=== PATIENT | female | born 1955 | race Caucasian/White ===

== ENCOUNTER 2017-08-20 15:04 | Emergency (ER) | payer OTHER ==
[2017-08-20] MEDS ORDERED: ONDANSETRON 4 MG (ODT) TAB ONE (15:39)
[2017-08-20] MEDS ORDERED: MORPHINE 4 MG/ML SYR ONE (15:39)
--- NOTE | 2017-08-20 16:18 | ER ---
Nurse's Notes [facility] Name: Jayleen Corona Age: 62 yrs Sex: Female : 1955 Arrival Date: 08/20/2017 Time: 15:07 Bed 30 Private MD: Jose Escamilla E Diagnosis: Chronic pain syndrome;Acute laryngitis Presentation: 08/20 15:11 Presenting complaint: Patient states: c/o back pain for years and has been increasing sv in pain. Pt needs back surgery but pain has increased. Went to get pt in lobby in her wheelchair and pt was already pulling herself around the registration desk. Transition of care: patient was not received from another setting of care. Care prior to arrival: None. 15:11 Method Of Arrival: Wheelchair sv 15:11 Acuity: JOANA 3 sv 16:14 Onset of symptoms is unknown. Risk Assessment: Do you want to hurt yourself or someone rk2 else? Patient reports no desire to harm self or others. Initial Sepsis Screen: Does the patient meet any 2 criteria? No. Patient's initial sepsis screen is negative. Does the patient have a suspected source of infection? No. Patient's initial sepsis screen is negative. Triage Assessment: 16:10 General: Appears in no apparent distress. uncomfortable, well developed, well rk2 nourished, Behavior is calm, cooperative. Pain: Complains of pain in back and throat. Neuro: Level of Consciousness is alert, obeys commands, Oriented to person, place, time, situation. Respiratory: Airway is patent Respiratory effort is even, unlabored, Respiratory pattern is regular, symmetrical. Derm: Skin is pink, warm \T\ dry. Historical: - Allergies: 15:13 No Known Allergies; sv - Home Meds: 15:13 alprazolam 2 mg Oral tab twice a day [Active]; Ambien 10 mg Oral tab 1 tab once daily sv [Active]; Cymbalta 30 mg Oral cpDR 1 cap once daily [Active]; gabapentin 100 mg Oral cap 3 caps 3 times per day [Active]; Keppra 1,000 mg Oral tab 1 tab every 12 hours [Active]; lisinopril-hydrochlorothiazide 10-12.5 mg Oral tab 1 tab once daily [Active]; - PMHx: 15:13 Chronic pain; COPD; Hypertension; Seizures; sv - PSHx: 15:13 partial hysterectomy; sv - Immunization history:: Adult Immunizations up to date. - Social history:: Smoking status: Patient uses tobacco products, smokes one pack cigarettes per day. - Ebola Screening: : No symptoms or risks identified at this time. Screenin:07 Abuse screen: Denies threats or abuse. Nutritional screening: No deficits noted. rk2 Tuberculosis screening: No symptoms or risk factors identified. Fall Risk Ambulatory Aid- Gait- Impaired (20 pts.). Vital Signs: 15:13 BP 118 / 70; Pulse 78; Resp 18; Temp 98.8; Pulse Ox 96% ; Weight 69.4 kg; Height 5 ft. sv 5 in. (165.10 cm); Pain 10/10; 16:36 BP 126 / 83; Pulse 70; Resp 17; Pulse Ox 96% on R/A; rk2 15:13 Body Mass Index 25.46 (69.40 kg, 165.10 cm) sv ED Course: 15:07 Patient arrived in ED. rg4 15:09 Jose Escamilla MD is Private Physician. rg4 15:12 Triage completed. sv 15:14 Arm band placed on right wrist. sv 15:20 Moira Nguyen FNP-C [facility]. snw 15:20 Erik Mendoza MD is Attending Physician. snw 15:34 Arelis Dyer RN is Primary Nurse. rk2 16:07 Patient has correct armband on for positive identification. Bed in low position. Call rk2 light in reach. Side rails up X2. 16:16 Jose Escamilla MD is Referral Physician. snw 16:41 Throat Culture Sent. rk2 16:50 No provider procedures requiring assistance completed. Patient did not have IV access rk2 during this emergency room visit. Administered Medications: 15:45 Drug: morphine 4 mg Route: IM; Site: right deltoid; rk2 16:39 Follow up: Response: No adverse reaction rk2 15:45 Drug: Zofran 4 mg Route: PO; rk2 16:39 Follow up: Response: No adverse reaction rk2 Outcome: 16:17 Discharge ordered by . snw 16:50 Discharged to home via wheelchair. rk2 16:50 Condition: improved 16:50 Discharge instructions given to patient, Prescriptions given X 2. 16:52 Patient left the ED. rk2 Signatures: Joaquin, Irene, RN RN sv Moira Nguyen, HAND TOUCH UP PAINTER-C HAND TOUCH UP PAINTER-Csnw Sushila Burton rg4 Arelis Dyer RN RN rk2 Corrections: (The following items were deleted from the chart) 15:15 15:13 Pulse 78bpm; Resp 18bpm; Pulse Ox 96%; Temp 98.8F; 69.4 kg; Height 5 ft. 5 in.; sv BMI: 25.4; Pain 12/04; sv 15:22 15:11 Presenting complaint: Patient states: c/o back pain for years and has been sv increasing in pain. Pt needs back surgery but pain has increased. sv
--- NOTE | 2017-08-20 16:18 | EDPHYS ---
Physician Documentation [facility] Name: Jayleen Corona Age: 62 yrs Sex: Female : 1955 Arrival Date: 08/20/2017 Time: 15:07 Bed 30 Private MD: Jose Escamilla E ED Physician Erik Mendoza HPI: 08/20 16:19 This 62 yrs old Female presents to ER via Wheelchair with complaints of snw Trouble Walking, Back Pain. 15:49 The patient presents to the emergency department with difficult walking, pt states she snw has difficulty but does independent sit up to show me location of back pain - from neck to feet. Onset: The symptoms/episode began/occurred gradually, 10 year(s) ago, and became worse and became persistent. Associated signs and symptoms: Pertinent positives: weakness, depression, tearfulness. Severity of symptoms: At their worst the symptoms were severe in the emergency department the symptoms are unchanged. Patient's baseline: Neuro: alert and fully oriented, Motor: no deficits, Ambulation: walks without assistance. Current symptoms: same chronic pain with added frustration that referral to back surgeon has not been obtained. The patient has experienced similar episodes in the past. It is unknown whether or not the patient has recently seen a physician. Historical: - Allergies: 15:13 No Known Allergies; sv - Home Meds: 15:13 alprazolam 2 mg Oral tab twice a day [Active]; Ambien 10 mg Oral tab 1 tab once daily sv [Active]; Cymbalta 30 mg Oral cpDR 1 cap once daily [Active]; gabapentin 100 mg Oral cap 3 caps 3 times per day [Active]; Keppra 1,000 mg Oral tab 1 tab every 12 hours [Active]; lisinopril-hydrochlorothiazide 10-12.5 mg Oral tab 1 tab once daily [Active]; - PMHx: 15:13 Chronic pain; COPD; Hypertension; Seizures; sv - PSHx: 15:13 partial hysterectomy; sv - Immunization history:: Adult Immunizations up to date. - Social history:: Smoking status: Patient uses tobacco products, smokes one pack cigarettes per day. - Ebola Screening: : No symptoms or risks identified at this time. ROS: 15:48 Eyes: Negative for injury, pain, redness, and discharge. snw 15:48 Cardiovascular: Negative for chest pain, palpitations, and edema, Respiratory: Negative for shortness of breath, cough, wheezing, and pleuritic chest pain, Abdomen/GI: Negative for abdominal pain, nausea, vomiting, diarrhea, and constipation, : Negative for injury, bleeding, discharge, and swelling, MS/Extremity: Negative for injury and deformity, Skin: Negative for injury, rash, and discoloration, Neuro: Negative for headache, weakness, numbness, tingling, and seizure. 15:48 Constitutional: Positive for fatigue, malaise. 15:48 ENT: Positive for sore throat. 15:48 Neck: Positive for swollen nodes. 15:48 Back: Positive for pain at rest, pain with movement. Exam: 15:47 Head/Face: Normocephalic, atraumatic. Eyes: Pupils equal round and reactive to light, snw extra-ocular motions intact. Lids and lashes normal. Conjunctiva and sclera are non-icteric and not injected. Cornea within normal limits. Periorbital areas with no swelling, redness, or edema. 15:47 Chest/axilla: Normal chest wall appearance and motion. Nontender with no deformity. No lesions are appreciated. Cardiovascular: Regular rate and rhythm with a normal S1 and S2. No gallops, murmurs, or rubs. Normal PMI, no JVD. No pulse deficits. Respiratory: Lungs have equal breath sounds bilaterally, clear to auscultation and percussion. No rales, rhonchi or wheezes noted. No increased work of breathing, no retractions or nasal flaring. Abdomen/GI: Soft, non-tender, with normal bowel sounds. No distension or tympany. No guarding or rebound. No evidence of tenderness throughout. Back: No spinal tenderness. No costovertebral tenderness. Full range of motion. Skin: Warm, dry with normal turgor. Normal color with no rashes, no lesions, and no evidence of cellulitis. MS/ Extremity: Pulses equal, no cyanosis. Neurovascular intact. Full, normal range of motion. Neuro: Awake and alert, GCS 15, oriented to person, place, time, and situation. Cranial nerves II-XII grossly intact. Motor strength 5/5 in all extremities. Sensory grossly intact. Cerebellar exam normal. Normal gait. Psych: Awake, alert, with orientation to person, place and time. Behavior, mood, and affect are within normal limits. 15:47 Constitutional: The patient appears alert, awake, anxious, uncomfortable. 15:47 ENT: Mouth: no acute changes, Posterior pharynx: erythema, that is moderate, Dental exam: missing teeth, diffusely, Voice: is hoarse. 15:47 Neck: Lymph nodes: lymphadenopathy is appreciated, anterior cervical nodes. Vital Signs: 15:13 BP 118 / 70; Pulse 78; Resp 18; Temp 98.8; Pulse Ox 96% ; Weight 69.4 kg; Height 5 ft. sv 5 in. (165.10 cm); Pain 10/10; 16:36 BP 126 / 83; Pulse 70; Resp 17; Pulse Ox 96% on R/A; rk2 15:13 Body Mass Index 25.46 (69.40 kg, 165.10 cm) sv MDM: 15:20 Patient medically screened. snw 16:19 Data reviewed: vital signs, nurses notes. Data interpreted: Pulse oximetry: on room air snw is 96 %. Interpretation: acceptable. Counseling: I had a detailed discussion with the patient and/or guardian regarding: the historical points, exam findings, and any diagnostic results supporting the discharge/admit diagnosis, the need for outpatient follow up, to return to the emergency department if symptoms worsen or persist or if there are any questions or concerns that arise at home. Special discussion: Based on the history and exam findings, there is no indication for further emergent testing or inpatient evaluation. I discussed with the patient/guardian the need to see the back specialist for further evaluation of the symptoms. I discussed with the patient/guardian the need to see the primary care provider for further evaluation of the symptoms. 08/20 15:30 Order name: Strep; Complete Time: 16:16 snw 08/20 16:19 Order name: Throat Culture EDMS Administered Medications: 15:45 Drug: morphine 4 mg Route: IM; Site: right deltoid; rk2 16:39 Follow up: Response: No adverse reaction rk2 15:45 Drug: Zofran 4 mg Route: PO; rk2 16:39 Follow up: Response: No adverse reaction rk2 Disposition: 08/21 06:57 Co-signature as Attending Physician, Erik Mendoza MD I agree with the assessment and jason plan of care. Disposition: 06/26/18 16:17 Discharged to Home. Impression: Chronic pain syndrome, Acute laryngitis. - Condition is Stable. - Discharge Instructions: Chronic Back Pain, Chronic Pain, Laryngitis. - Prescriptions for Diclofenac Sodium 75 mg Oral Tablet Sustained Release - take 1 tablet by ORAL route 2 times per day; 30 tablet. orphenadrine citrate 100 mg Oral Tablet Sustained Release - take 1 tablet by ORAL route 2 times per day As needed; 20 tablet. - Medication Reconciliation Form, Thank You Letter, Antibiotic Education, Prescription Opioid Use form. - Follow up: Jose Escamilla MD; When: 1 - 2 days; Reason: Recheck today's complaints, Continuance of care, Re-evaluation by your physician. Follow up: Emergency Department; When: As needed; Reason: Worsening of condition. Signatures: Dispatcher [employer] EDIrene Mccauley, RN RN Erik Barry MD MD cha Therrien, Shelly, BLOOD AND PLASMA LABORATORY ASSISTANT-C BLOOD AND PLASMA LABORATORY ASSISTANT-Csnw Arelis Dyer RN RN rk2 Corrections: (The following items were deleted from the chart) 08/20 16:52 16:17 08/20/2017 16:17 Discharged to Home. Impression: Chronic pain syndrome; Acute rk2 laryngitis. Condition is Stable. Forms are Medication Reconciliation Form, Thank You Letter, Antibiotic Education, Prescription Opioid Use. Follow up: Jose Escamilla; When: 1 - 2 days; Reason: Recheck today's complaints, Continuance of care, Re-evaluation by your physician. Follow up: Emergency Department; When: As needed; Reason: Worsening of condition. snw
== END 2017-08-20 16:52 | disposition home or self-care (01) ==
LOC: ER 15:04
DX: G89.4 Chronic pain syndrome (principal); J04.0 Acute laryngitis; J44.9 Chronic obstructive pulmonary disease, unspecified; I10 Essential (primary) hypertension; F17.210 Nicotine dependence, cigarettes, uncomplicated
CPT/HCPCS: 87070; 87081; 96372; 99283

== ENCOUNTER 2018-05-08 13:30 | Observation (INO) | payer OTHER ==
--- NOTE | 2018-05-08 15:07 | RAD REPORT ---
EXAM DESCRIPTION: CT - Stone Protocol - 05/08/2018 2:56 pm CLINICAL HISTORY: Abdominal pain. Left flank pain COMPARISON: February 2017 TECHNIQUE: Computed axial tomography of the abdomen pelvis was obtained without oral or IV contrast. Lack of IV and oral contrast limits evaluation of solid organs, bowel, and vessels. Coronal reformat chaitanya images were obtained and reviewed. All CT scans are performed using dose optimization technique as appropriate and may include automated exposure control or mA/KV adjustment according to patient size. FINDINGS: A 3 millimeter left renal calculus is present. No hydronephrosis. A ureteral calculus is n ot seen The liver, spleen, pancreas and adrenals appear grossly normal There is no evidence of diverticulitis. The appendix appears normal 20 millimeter left ovarian cyst without significant free fluid. Hysterectomy Small umbilical hernia IMPRESSION: 3 millimeter nonobstructing left renal calculus 20 millimeter left ovarian cyst without significant free fluid 20 millimeter left ovarian cyst without significant free fluid
[2018-05-08] MEDS ORDERED: NA CHLORIDE 0.9% 1,000 ML ONE ×2 (17:57→19:41)
[2018-05-08 18:00] LABS: Urine Blood 2+ (NEG); Urine Glucose NEGATIVE (NEG); Urine Protein 1+ (NEG)
[2018-05-08 18:06] LABS: Absolute Lymphocytes (CBC) 3.7 K/uL (0.7-4.9); Absolute Monocytes 0.8 K/uL (0.1-1.3); Absolute Neutrophil 7.2 K/uL (1.8-8.0); Eosinophils % 0.9 % (0-4.4); Hematocrit 46.4 % (36.0-45.0); Lymphocytes % 30.9 % (15.3-44.8); RBC Red Blood Cell Count 5.12 M/uL (3.86-4.86)
[2018-05-08] MEDS ORDERED: ONDANSETRON 4 MG/2 ML VIAL ONE (18:21)
[2018-05-08] MEDS ORDERED: MORPHINE 4 MG/ML SYR ONE (18:21)
[2018-05-08 18:40] LABS: Albumin 3.8 g/dL (3.4-5.0); Bilirubin Direct 0.1 mg/dL (0-0.2); Bilirubin Total 0.4 mg/dL (0.2-1.0)
[2018-05-08 18:43] LABS: Potassium 2.8 mmol/L (3.5-5.1)
--- NOTE | 2018-05-08 19:26 | ER ---
Nurse's Notes [facility] Name: Jayleen Corona Age: 63 yrs Sex: Female : 1955 Arrival Date: 05/08/2018 Time: 13:32 Bed 23 Private MD: Diagnosis: Abdominal tenderness;Elevated white blood cell count;Hypokalemia Presentation: 05/08 14:43 Presenting complaint: Patient states: L flank pain x 1 week, was seen at PCP and dx w/ ph kidney stones, no imaging done, pt reports that pain has not improved, denies urinary symptoms. Transition of care: patient was not received from another setting of care. Onset of symptoms was May 08, 2018. Risk Assessment: Do you want to hurt yourself or someone else? Patient reports no desire to harm self or others. Initial Sepsis Screen: Does the patient meet any 2 criteria? No. Patient's initial sepsis screen is negative. Does the patient have a suspected source of infection? No. Patient's initial sepsis screen is negative. Care prior to arrival: None. 14:43 Method Of Arrival: Ambulatory ph 14:43 Acuity: JOANA 3 ph Historical: - Allergies: 14:45 No Known Drug Allergies; ph - Home Meds: 20:47 Lisinopril 10mg/2.5mg Oral 1 tab once daily [Active]; atorvastatin 10 mg oral tab 1 tab rv once daily [Active]; gabapentin 600 mg oral tab 1 tab twice a day [Active]; Xanax 2 mg Oral tab 1 tab twice a day [Active]; - PMHx: 14:45 Chronic pain; COPD; Hypertension; Seizures; ph - PSHx: 14:45 partial hysterectomy; ph - Immunization history:: Flu vaccine is not up to date. - Family history:: not pertinent. - Social history:: Smoking status: Patient uses tobacco products, smokes one pack cigarettes per day. - Ebola Screening: : Patient negative for fever greater than or equal to 101.5 degrees Fahrenheit, and additional compatible Ebola Virus Disease symptoms Patient denies exposure to infectious person Patient denies travel to an Ebola-affected area in the 21 days before illness onset. Screenin:00 Abuse screen: Denies threats or abuse. Denies injuries from another. Nutritional ca1 screening: No deficits noted. Tuberculosis screening: No symptoms or risk factors identified. Fall Risk None identified. Assessment: 17:00 General: Appears in no apparent distress. comfortable, Behavior is calm, cooperative, ca1 appropriate for age. Pain: Complains of pain in left lower quadrant and right lower quadrant and suprapubic area Pain radiates to posterior aspect of left lateral abdomen and posterior aspect of right lateral abdomen Pain currently is 8 out of 10 on a pain scale. Pain began 2-3 days ago. Neuro: Level of Consciousness is awake, alert, obeys commands, Oriented to person, place, time, situation. Cardiovascular: Heart tones S1 S2 present Capillary refill < 3 seconds Patient's skin is warm and dry. Respiratory: Airway is patent Respiratory effort is even, unlabored, Respiratory pattern is regular, symmetrical, Breath sounds are clear bilaterally. GI: Abdomen is flat, non-distended, Bowel sounds present X 4 quads. Abd is soft X 4 quads Abdomen is tender to palpation in suprapubic area, right lower quadrant and left lower quadrant. : Reports burning with urination. EENT: No deficits noted. No signs and/or symptoms were reported regarding the EENT system. Derm: Skin is intact, is healthy with good turgor, Skin is pink, warm \T\ dry. Musculoskeletal: Circulation, motion, and sensation intact. Capillary refill < 3 seconds. 18:00 Reassessment: Patient appears in no apparent distress at this time. Patient and/or ca1 family updated on plan of care and expected duration. Pain level reassessed. Patient is alert, oriented x 3, equal unlabored respirations, skin warm/dry/pink. 19:00 Reassessment: Patient appears in no apparent distress at this time. Patient and/or ca1 family updated on plan of care and expected duration. Pain level reassessed. Patient is alert, oriented x 3, equal unlabored respirations, skin warm/dry/pink. 20:00 Reassessment: Patient appears in no apparent distress at this time. Patient and/or ca1 family updated on plan of care and expected duration. Pain level reassessed. Patient is alert, oriented x 3, equal unlabored respirations, skin warm/dry/pink. Patient states feeling better. Vital Signs: 14:44 BP 126 / 91; Pulse 80; Resp 18; Temp 97.9; Pulse Ox 97% on R/A; Weight 59.87 kg; Height ph 5 ft. 4 in. (162.56 cm); 17:00 BP 176 / 94; Pulse 72; Resp 19; Pulse Ox 99% on R/A; ca1 18:00 BP 149 / 99; Pulse 69; Resp 19; Pulse Ox 98% on R/A; ca1 19:00 BP 145 / 89; Pulse 71; Resp 19; Pulse Ox 98% on R/A; ca1 20:00 BP 135 / 85; Pulse 70; Resp 19; Pulse Ox 99% on R/A; ca1 14:44 Body Mass Index 22.66 (59.87 kg, 162.56 cm) ph ED Course: 13:32 Patient arrived in ED. tw3 14:44 Triage completed. ph 14:45 Arm band placed on Patient placed in waiting room, Patient notified of wait time. CT ph ordered. 14:54 CT completed. Patient tolerated procedure well. Patient moved to CT via wheelchair. jg6 14:56 CT Stone Protocol In Process Unspecified. EDMS 16:51 Erik Mendoza MD is Attending Physician. jason 17:00 Patient has correct armband on for positive identification. Placed in gown. Bed in low ca1 position. Call light in reach. Side rails up X 1. Pulse ox on. NIBP on. Warm blanket given. 17:35 Kiera Siegel RN is Primary Nurse. ca1 18:01 Initial lab(s) drawn, by me, sent to lab. Inserted saline lock: 22 gauge in left lt1 antecubital area, using aseptic technique. 19:22 Curly Fltecher MD is Hospitalizing Provider. jason 20:38 No provider procedures requiring assistance completed. Patient admitted, IV remains in rv place. intact. Administered Medications: Discontinued: NS 0.9% 1000 ml IV at 125 ml/hr continuous 17:55 Drug: NS 0.9% 1000 ml Route: IV; Rate: 125 ml/hr; Site: left antecubital; ca1 18:08 Drug: Zofran 4 mg Route: IVP; Site: left antecubital; ca1 23:14 Follow up: Response: No adverse reaction; Nausea is decreased ca1 18:10 Drug: morphine 4 mg Route: IVP; Site: left antecubital; ca1 20:30 Follow up: Response: No adverse reaction; Pain is decreased ca1 19:35 Drug: Potassium Effervescent Tablet 25 mEq Route: PO; rv 20:00 Follow up: Response: No adverse reaction ca1 19:40 Drug: NS 0.9% with KCl 20 mEq/L 1000 ml Route: IV; Rate: 125 ml/hr; Site: left rv antecubital; 20:30 Follow up: IV Status: Infusion continued upon admission ca1 19:44 Drug: Potassium Chloride 20 mEq Route: IV; Rate: ml/hr; Site: left antecubital; rv Outcome: 19:26 Decision to Hospitalize by Provider. jason 20:47 Admitted to Med/surg accompanied by tech, via wheelchair, room 225, with chart, Report rv called to KALLIE SWIFT 20:47 Condition: good 20:47 Instructed on the need for admit, Demonstrated understanding of instructions. 20:49 Patient left the ED. rv Signatures: Dispatcher [employer] EDMS Erik Mendoza MD MD cha Hall, Patricia, RN RN Daren, Elda tw3 Ashish Fontanez RN RN rv Sapphire Burtong6 Kiera Siegel RN RN ca1 Isabel Barrett lt1 Corrections: (The following items were deleted from the chart) 18:05 18:00 Immunization history: Flu vaccine is not up to date. ca1 ca1 18:05 18:00 Social history: Smoking status: Patient uses tobacco products, smokes one pack ca1 cigarettes per day. ca1 18:13 08:10 Zofran 4 mg IVP in left antecubital ca1 ca1
--- NOTE | 2018-05-08 19:26 | EDPHYS ---
Physician Documentation [facility] Name: Jayleen Corona Age: 63 yrs Sex: Female : 1955 Arrival Date: 05/08/2018 Time: 13:32 Bed 23 Private MD: ED Physician Erik Mendoza HPI: 05/08 17:40 This 63 yrs old Female presents to ER via Ambulatory with complaints of SIDE jason PAIN. 17:40 The patient presents with abdominal pain in the lower abdomen. Onset: The jason symptoms/episode began/occurred 3 day(s) ago. The symptoms radiate to back. Associated signs and symptoms: none. The symptoms are described as crampy. Modifying factors: The symptoms are alleviated by nothing, the symptoms are aggravated by nothing. Severity of pain: At its worst the pain was mild moderate in the emergency department the pain is unchanged. The patient has not experienced similar symptoms in the past. Historical: - Allergies: 14:45 No Known Drug Allergies; ph - Home Meds: 20:47 Lisinopril 10mg/2.5mg Oral 1 tab once daily [Active]; atorvastatin 10 mg oral tab 1 tab rv once daily [Active]; gabapentin 600 mg oral tab 1 tab twice a day [Active]; Xanax 2 mg Oral tab 1 tab twice a day [Active]; - PMHx: 14:45 Chronic pain; COPD; Hypertension; Seizures; ph - PSHx: 14:45 partial hysterectomy; ph - Immunization history:: Flu vaccine is not up to date. - Family history:: not pertinent. - Social history:: Smoking status: Patient uses tobacco products, smokes one pack cigarettes per day. - Ebola Screening: : Patient negative for fever greater than or equal to 101.5 degrees Fahrenheit, and additional compatible Ebola Virus Disease symptoms Patient denies exposure to infectious person Patient denies travel to an Ebola-affected area in the 21 days before illness onset. ROS: 17:40 Constitutional: Negative for fever, chills, and weight loss, Eyes: Negative for injury, jason pain, redness, and discharge, ENT: Negative for injury, pain, and discharge, Neck: Negative for injury, pain, and swelling, Cardiovascular: Negative for chest pain, palpitations, and edema, Respiratory: Negative for shortness of breath, cough, wheezing, and pleuritic chest pain, Back: Negative for injury and pain, : Negative for injury, bleeding, discharge, and swelling, MS/Extremity: Negative for injury and deformity, Skin: Negative for injury, rash, and discoloration, Neuro: Negative for headache, weakness, numbness, tingling, and seizure, Psych: Negative for depression, anxiety, suicide ideation, homicidal ideation, and hallucinations, Allergy/Immunology: Negative for hives, rash, and allergies, Endocrine: Negative for neck swelling, polydipsia, polyuria, polyphagia, and marked weight changes, Hematologic/Lymphatic: Negative for swollen nodes, abnormal bleeding, and unusual bruising. 17:40 Abdomen/GI: Positive for abdominal pain, of the suprapubic area, posterior aspect of right lateral abdomen, posterior aspect of left lateral abdomen and right lower quadrant. Exam: 17:40 Constitutional: This is a well developed, well nourished patient who is awake, alert, jason and in no acute distress. Head/Face: Normocephalic, atraumatic. Eyes: Pupils equal round and reactive to light, extra-ocular motions intact. Lids and lashes normal. Conjunctiva and sclera are non-icteric and not injected. Cornea within normal limits. Periorbital areas with no swelling, redness, or edema. ENT: Nares patent. No nasal discharge, no septal abnormalities noted. Tympanic membranes are normal and external auditory canals are clear. Oropharynx with no redness, swelling, or masses, exudates, or evidence of obstruction, uvula midline. Mucous membranes moist. Neck: Trachea midline, no thyromegaly or masses palpated, and no cervical lymphadenopathy. Supple, full range of motion without nuchal rigidity, or vertebral point tenderness. No Meningismus. Chest/axilla: Normal chest wall appearance and motion. Nontender with no deformity. No lesions are appreciated. Cardiovascular: Regular rate and rhythm with a normal S1 and S2. No gallops, murmurs, or rubs. Normal PMI, no JVD. No pulse deficits. Respiratory: Lungs have equal breath sounds bilaterally, clear to auscultation and percussion. No rales, rhonchi or wheezes noted. No increased work of breathing, no retractions or nasal flaring. Back: No spinal tenderness. No costovertebral tenderness. Full range of motion. Female : Normal external genitalia. Skin: Warm, dry with normal turgor. Normal color with no rashes, no lesions, and no evidence of cellulitis. MS/ Extremity: Pulses equal, no cyanosis. Neurovascular intact. Full, normal range of motion. Neuro: Awake and alert, GCS 15, oriented to person, place, time, and situation. Cranial nerves II-XII grossly intact. Motor strength 5/5 in all extremities. Sensory grossly intact. Cerebellar exam normal. Normal gait. Psych: Awake, alert, with orientation to person, place and time. Behavior, mood, and affect are within normal limits. 17:40 Abdomen/GI: Inspection: abdomen appears normal, Bowel sounds: active, Palpation: mild abdominal tenderness, in the right lower quadrant and left lower quadrant, Liver: no appreciated palpable abnormalities, Hernia: not appreciated. Vital Signs: 14:44 BP 126 / 91; Pulse 80; Resp 18; Temp 97.9; Pulse Ox 97% on R/A; Weight 59.87 kg; Height ph 5 ft. 4 in. (162.56 cm); 17:00 BP 176 / 94; Pulse 72; Resp 19; Pulse Ox 99% on R/A; ca1 18:00 BP 149 / 99; Pulse 69; Resp 19; Pulse Ox 98% on R/A; ca1 19:00 BP 145 / 89; Pulse 71; Resp 19; Pulse Ox 98% on R/A; ca1 20:00 BP 135 / 85; Pulse 70; Resp 19; Pulse Ox 99% on R/A; ca1 14:44 Body Mass Index 22.66 (59.87 kg, 162.56 cm) ph MDM: 16:51 Patient medically screened. [facility] 17:42 Data reviewed: vital signs, nurses notes, lab test result(s), radiologic studies, CT jason scan. 05/08 17:33 Order name: Basic Metabolic Panel; Complete Time: 19:15 jason 05/08 17:33 Order name: CBC with Diff; Complete Time: 19:15 jason 05/08 17:33 Order name: Creatinine for Radiology; Complete Time: 19:15 jason 05/08 17:33 Order name: Hepatic Function; Complete Time: 19:15 jason 05/08 17:33 Order name: Lipase; Complete Time: 19:15 jason 05/08 17:40 Order name: Urine Dipstick--Ancillary (enter results); Complete Time: 19:15 05/08 14:46 Order name: CT Stone Protocol; Complete Time: 17:32 ph 05/08 19:22 Order name: Phosphorus jason 05/08 19:57 Order name: CBC with Automated Diff EDSC 05/08 19:57 Order name: CBC with Automated Diff EDSC 05/08 19:57 Order name: Comprehensive Metabolic Panel EDSC 05/08 19:57 Order name: Comprehensive Metabolic Panel EDSC 05/08 19:57 Order name: Urinalysis W/Microscopic EDSC 05/08 17:33 Order name: IV Saline Lock; Complete Time: 17:41 jason 05/08 17:33 Order name: Labs collected and sent; Complete Time: 17:41 jason 05/08 19:57 Order name: CONS Pharmacy Consult EDSC 05/08 19:57 Order name: Heart Healthy EDSC Administered Medications: Discontinued: NS 0.9% 1000 ml IV at 125 ml/hr continuous 17:55 Drug: NS 0.9% 1000 ml Route: IV; Rate: 125 ml/hr; Site: left antecubital; ca1 18:08 Drug: Zofran 4 mg Route: IVP; Site: left antecubital; ca1 23:14 Follow up: Response: No adverse reaction; Nausea is decreased ca1 18:10 Drug: morphine 4 mg Route: IVP; Site: left antecubital; ca1 20:30 Follow up: Response: No adverse reaction; Pain is decreased ca1 19:35 Drug: Potassium Effervescent Tablet 25 mEq Route: PO; rv 20:00 Follow up: Response: No adverse reaction ca1 19:40 Drug: NS 0.9% with KCl 20 mEq/L 1000 ml Route: IV; Rate: 125 ml/hr; Site: left rv antecubital; 20:30 Follow up: IV Status: Infusion continued upon admission ca1 19:44 Drug: Potassium Chloride 20 mEq Route: IV; Rate: ml/hr; Site: left antecubital; rv Disposition: 05/08/18 19:26 Hospitalization ordered by Curly Fletcher for Observation. Preliminary diagnosis are Abdominal tenderness, Elevated white blood cell count, Hypokalemia. - Bed requested for Telemetry/MedSurg (observation). - Status is Observation. rv - Condition is Stable. - Problem is new. - Symptoms have improved. UTI on Admission? Yes Signatures: Dispatcher [employer] EDSC Justine Olson, RN RN dw Erik Mendoza MD MD cha Hall, Patricia, RN RN ph Ashish Fontanez, JENIFFER RN rv Kiera Siegel RN RN ca1 Corrections: (The following items were deleted from the chart) 18:05 18:00 Immunization history: Flu vaccine is not up to date. ca1 ca1 18:05 18:00 Social history: Smoking status: Patient uses tobacco products, smokes one pack ca1 cigarettes per day. ca1 20:00 19:26 Hospitalization Ordered by Curly Fletcher MD for Observation. Preliminary dw diagnosis is Abdominal tenderness; Elevated white blood cell count; Hypokalemia. Bed requested for Telemetry/MedSurg (observation). Status is Observation. Condition is Stable. Problem is new. Symptoms have improved. UTI on Admission? Yes. jason 20:49 20:00 05/08/2018 19:26 Hospitalization Ordered by Curly Fletcher MD for Observation. rv Preliminary diagnosis is Abdominal tenderness; Elevated white blood cell count; Hypokalemia. Bed requested for Telemetry/MedSurg (observation). Status is Observation. Condition is Stable. Problem is new. Symptoms have improved. UTI on Admission? Yes. dw
[2018-05-08] MEDS ORDERED: KCL 20 MEQ/100 mL IVPB 40 MEQ/200 ML BAG IV ONE (19:41)
[2018-05-08] MEDS ORDERED: POTASSIUM 25 MEQ EFFERV TAB ONE (19:41)
[2018-05-08] MEDS ORDERED: ONDANSETRON 4 MG/2 ML VIAL IV PRN (19:54)
[2018-05-08] MEDS ORDERED: ACETAMINOPHEN 500 MG TAB PO PRN (19:54)
[2018-05-08] MEDS: Levofloxacin500mg IV 500 MG/100 ML BAG IV SCH ×2 (20:00→21:28)
[2018-05-08] MEDS: NA CHLORIDE 0.9% 1,000 ML IV SCH (20:00)
[2018-05-08] MEDS: MORPHINE 2 MG/ML SYR IV PRN (21:49)
[2018-05-09] MEDS: MORPHINE 2 MG/ML SYR IV PRN ×2 (02:30→08:13)
[2018-05-09 05:22] LABS: Albumin 3.2 g/dL (3.4-5.0); Bilirubin Total 0.5 mg/dL (0.2-1.0); Potassium 3.5 mmol/L (3.5-5.1); Protein, Total 6.8 g/dL (6.4-8.2)
[2018-05-09 05:27] LABS: Absolute Lymphocytes (CBC) 2.5 K/uL (0.7-4.9); Absolute Monocytes 0.8 K/uL (0.1-1.3); Basophils % 0.3 % (0-1.3); Eosinophils % 0.7 % (0-4.4); Hematocrit 42.7 % (36.0-45.0); Lymphocytes % 21.9 % (15.3-44.8); MPV 9.3 fL (7.6-11.3); Monocytes % 7.1 % (3.3-12.3); RBC Red Blood Cell Count 4.68 M/uL (3.86-4.86)
[2018-05-09] MEDS: NA CHLORIDE 0.9% 1,000 ML IV SCH (05:44)
[2018-05-09] MEDS ORDERED: INFLUENZA VACCINE (for 3y+) 0.5 ML DOSE IMVAC ONE (06:00)
[2018-05-09 06:30] LABS: Urine Appearance CLEAR; Urine Bilirubin NEGATIVE (NEG); Urine Blood 2+ (NEG); Urine Color YELLOW; Urine Glucose NEGATIVE (NEG); Urine Protein NEGATIVE (NEG); Urine Specific Gravity <=1.005 (1.005-1.030); Urine Urobilinogen 0.2 mg/dL (0.2-1.0); Urine pH 7.5 (5.0-7.0)
[2018-05-09 07:27] LABS: Urine Bacteria <20 /HPF (<20); Urine Culture Reflex Order NOT NEEDED
[2018-05-09] MEDS ORDERED: POTASSIUM CL SA 10 MEQ TAB PO ONE (08:20)
[2018-05-09] MEDS ORDERED: IBUPROFEN 400 MG TAB PO PRN (10:05)
[2018-05-09] MEDS ORDERED: HYDROCODONE/APAP 7.5/325 MG TAB PO PRN (10:05)
--- NOTE | 2018-05-09 10:10 | P.HP ---
Certification for Inpatient Patient admitted to: Observation With expected LOS: <2 Midnights Patient will require the following post-hospital care: None Practitioner: I am a practitioner with admitting privileges, knowledge of patient current condition, hospital course, and medical plan of care. Services: Services provided to patient in accordance with Admission requirements found in Title 42 Section 412.3 of the Code of Federal Regulations Patient History Date of Service: 05/08/18 Reason for admission: Hematuria/abdominal pain/nausea History of Present Illness: Patient is a 63-year-old female who is been having some abdominal discomfort for the last couple of days. Her symptoms were not improving so she came into the ER for evaluation. In the ER she was found have hematuria and the CT scan of the abdomen revealed ovarian cyst bilaterally. The was no free fluid. Patient will be admitted to the hospital for observation. Allergies No Known Allergies Allergy (Verified 05/08/18 21:15) Home Medications: ALPRAZolam [Alprazolam] 1 tab PO BID 05/08/18 Atorvastatin Calcium [Lipitor*] 1 tab PO BEDTIME 05/08/18 Gabapentin 1 tab PO TID 05/08/18 Lisinopril/Hydrochlorothiazide [Lisinopril-Hctz 10-12.5 mg Tab] 1 each PO BEDTIME 05/08/18 - Past Medical/Surgical History Has patient received pneumonia vaccine in the past: Yes Diabetic: No -: copd -: htn -: seizures -: chronic pain -: partial hysterectomy - Family History Sister Medical History: Cancer Notes: ovarian Mother Medical History: Stroke Notes: Brain aneurysm - Social History Smoking Status: Current every day smoker Alcohol use: No CD- Drugs: No Caffeine use: Yes Place of Residence: Home Review of Systems 10-point ROS is otherwise unremarkable Physical Examination - Vital Signs Temperature: 97.3 F Blood Pressure: 151/74 Pulse: 18 Respirations: 16 Pulse Ox (%): 96 - Physical Exam General: Alert, In no apparent distress, Oriented x3 HEENT: Atraumatic, PERRLA, Mucous membr. moist/pink, EOMI, Sclerae nonicteric Neck: Supple, 2+ carotid pulse no bruit, No LAD, Without JVD or thyroid abnormality Respiratory: Clear to auscultation bilaterally, Normal air movement Cardiovascular: Regular rate/rhythm, Normal S1 S2 Gastrointestinal: Normal bowel sounds, Soft and benign, Non-distended, No tenderness Musculoskeletal: No clubbing, No swelling, No tenderness Integumentary: No rashes Neurological: Normal gait, Normal speech, Normal strength at 5/5 x4 extr, Normal tone, Sensation intact, Cranial nerves 3-12 intact, Normal affect Lymphatics: No axilla or inguinal lymphadenopathy - Studies Laboratory Data (last 24 hrs) 05/08/18 17:49: Creatinine 0.75 05/08/18 17:49: WBC 12.0 H, Hgb 15.7 H, Hct 46.4 H, Plt Count 276 05/08/18 17:19: Phosphorus 3.2 05/08/18 17:19: Sodium 142, Potassium 2.8 L*, BUN 9, Creatinine 0.76, Glucose 109 H, Total Bilirubin 0.4, AST 13 L, ALT 18, Alkaline Phosphatase 110, Lipase 105 Assessment & Plan - Problems (Diagnosis) (1) Hematuria Current Visit: Yes Status: Acute (2) Ovarian cyst Current Visit: Yes Status: Acute (3) Abdominal pain Current Visit: Yes Status: Acute (4) Hypertension Current Visit: Yes Status: Acute (5) COPD (chronic obstructive pulmonary disease) Current Visit: Yes Status: Acute (6) Seizure Current Visit: Yes Status: Acute - Plan Plan: 1. IV hydration 2. Pain control 3. Outpatient follow-up with Urology & gynecology 4. Monitor H&H 5. Monitor renal function 6. Strict input and output 7. GI and DVT prophylaxis Discharge Plan: Home Plan to discharge in: 24 Hours - Advance Directives Does patient have a Living Will: No Does patient have a Durable POA for Healthcare: No - Code Status/Comfort Care Code Status Assessed: Yes Code Status: Full Code Critical Care: No Time Spent Managing PTS Care (In Minutes): 50
--- NOTE | 2018-05-09 10:35 | P.DS ---
Discharge Date: 05/09/18 Disposition: ROUTINE DISCHARGE Discharge Condition: GOOD Reason for Admission: Hematuria/abdominal pain/nausea - Problems (1) Hematuria Current Visit: Yes Status: Acute (2) Ovarian cyst Current Visit: Yes Status: Acute (3) Abdominal pain Current Visit: Yes Status: Acute (4) Hypertension Current Visit: Yes Status: Acute (5) COPD (chronic obstructive pulmonary disease) Current Visit: Yes Status: Acute (6) Seizure Current Visit: Yes Status: Acute Brief History of Present Illness: Patient is a 63-year-old female who is been having some abdominal discomfort for the last couple of days. Her symptoms were not improving so she came into the ER for evaluation. In the ER she was found have hematuria and the CT scan of the abdomen revealed ovarian cyst bilaterally. The was no free fluid. Patient will be admitted to the hospital for observation. Hospital Course: PATIENT STATES THAT HER PAIN IS IMPROVED. SHE IS STABLE FOR DISCHARGE WITH OUTPT FOLLOW-UP. Vital Signs/Physical Exam: Temp Pulse Resp BP Pulse Ox 97.3 F 18 L 16 151/74 H 96 05/09/18 10:09 05/09/18 10:09 05/09/18 10:09 05/09/18 10:09 05/09/18 10:09 General: Alert, In no apparent distress, Oriented x3 Laboratory Data at Discharge: WBC 11.4 K/uL (4.3-10.9) H 05/09/18 04:22 Hgb 14.7 g/dL (12.0-15.0) 05/09/18 04:22 Hct 42.7 % (36.0-45.0) 05/09/18 04:22 Plt Count 235 K/uL (152-406) 05/09/18 04:22 Sodium 144 mmol/L (136-145) 05/09/18 04:22 Potassium 3.5 mmol/L (3.5-5.1) 05/09/18 04:22 BUN 5 mg/dL (7-18) L 05/09/18 04:22 Creatinine 0.70 mg/dL (0.55-1.3) 05/09/18 04:22 Glucose 134 mg/dL (74-106) H 05/09/18 04:22 Phosphorus 3.2 mg/dL (2.5-4.9) 05/08/18 17:19 Total Bilirubin 0.5 mg/dL (0.2-1.0) 05/09/18 04:22 AST 14 U/L (15-37) L 05/09/18 04:22 ALT 15 U/L (12-78) 05/09/18 04:22 Alkaline Phosphatase 92 U/L (45-117) 05/09/18 04:22 Lipase 105 U/L (73-393) 05/08/18 17:19 Home Medications: ALPRAZolam [Alprazolam] 1 tab PO BID 05/08/18 Atorvastatin Calcium [Lipitor*] 1 tab PO BEDTIME 05/08/18 Gabapentin 1 tab PO TID 05/08/18 Lisinopril/Hydrochlorothiazide [Lisinopril-Hctz 10-12.5 mg Tab] 1 each PO BEDTIME 05/08/18 Hydrocodone Bit/Acetaminophen [Bisbee 10-325 Tablet] 1 each PO Q6HP PRN #20 tablet 05/09/18 Ibuprofen [Motrin] 200 mg PO BID PRN #30 tablet 05/09/18 New Medications: Hydrocodone Bit/Acetaminophen [Bisbee 10-325 Tablet] 1 each PO Q6HP PRN #20 tablet PRN Reason: Pain Scale 5-7 (Moderate) Ibuprofen [Motrin] 200 mg PO BID PRN #30 tablet PRN Reason: Pain Scale 2-4 (Mild) Patient Discharge Instructions: OK TO DC IV AND DC HOME. FOLLOW-UP WITH DR. DE LEÓN, UROLOGY, IN 1-2 WEEKS. FOLLOW-UP WITH GYNECOLOGY IN 1 WEEK. DRINK 1500ML OF FLUIDS OVER THE NEXT 48HRS. CALL DR. GOLDSTEIN AT [phone] IF ANY QUESTIONS REGARDING HOSPITAL STAY OR IF ASSISTANCE WITH FOLLOW-UP IS NEEDED. RETURN TO THE ER IF ABDOMINAL PAIN WORSENS OR IF GROSS HEMATURIA Diet: Regular Activity: Fall precautions Time spent managing pt's care (in minutes): 20
[2018-05-09] MEDS ORDERED: GABAPENTIN 300 MG CAP PO SCH (14:00)
[2018-05-09] MEDS ORDERED: hydroCHLOROthiazide 12.5 MG CAP PO SCH (21:00)
[2018-05-09] MEDS ORDERED: LISINOPRIL 10 MG TAB PO SCH (21:00)
[2018-05-09] MEDS ORDERED: ALPRAZOLAM 1 MG TABLET PO SCH (21:00)
[2018-05-09] MEDS ORDERED: HOME MED 1 EA UNK (Lisinopril/Hydrochlorothiazide [Lisinopril-Hctz 10-12.5 Mg Tab] 1 EACH) PO SCH (21:00)
[2018-05-09] MEDS ORDERED: ATORVASTATIN 10 MG TAB PO SCH (21:00)
== END 2018-05-09 12:37 | disposition home or self-care (01) ==
LOC: ER 13:30 → ERHOLD 19:54 → 2ND 20:41
PROVIDERS: ADMIT Hospitalist; ATTEND Hospitalist
DX: N83.202 Unspecified ovarian cyst, left side (principal); N83.201 Unspecified ovarian cyst, right side; R31.9 Hematuria, unspecified; I10 Essential (primary) hypertension; J44.9 Chronic obstructive pulmonary disease, unspecified; R56.9 Unspecified convulsions; F17.210 Nicotine dependence, cigarettes, uncomplicated; Z23 Encounter for immunization
CPT/HCPCS: 36415; 74176; 76377; 80048; 80053; 80076; 81001; 81003; 83690; 84100; 85025; 96361; 96374; 96375; 99285; G0008; G0378; J2270; J2405; J7030; Q2035